=== PATIENT | female | born 2000 | race Caucasian/White ===

== ENCOUNTER 2021-02-23 09:36 | Emergency (ER) | payer OTHER ==
[~2021-02-23] VITALS: Ht 165.1 cm; Wt 69.7 kg
[2021-02-23 11:51] LABS: BASO % 0.3 % (0.0-1.0); EOS # 0.1 10^3/uL (0.0-0.5); EOS % 1.1 % (0.0-3.0); HEMATOCRIT 43.8 % (36.0-47.0); HEMOGLOBIN 14.3 g/dl (12.0-15.5); LYMPH # 2.4 10^3/uL (1.5-5.0); LYMPH % 27.1 % (24.0-44.0); MEAN CORPUSCULAR HEMOGLOBIN 28.9 pg (27.0-33.0); MEAN CORPUSCULAR HGB CONC 32.6 g/dl (32.0-36.5); MEAN CORPUSCULAR VOLUME 88.7 fl (80.0-96.0); MONO # 0.4 10^3/uL (0.0-0.8); MONO % 4.3 % (2.0-8.0); NEUTROPHILS % 66.9 % (36.0-66.0); PLATELET COUNT, AUTOMATED 229 10^3/uL (150-450); RED BLOOD COUNT 4.94 10^6/uL (4.00-5.40)
[2021-02-23 12:37] LABS: BLOOD UREA NITROGEN 14 MG/DL (7-18); CALCIUM LEVEL 9.7 MG/DL (8.5-10.1); CARBON DIOXIDE LEVEL 26 MEQ/L (21-32); CHLORIDE LEVEL 107 MEQ/L (98-107); GLUCOSE, FASTING 83 MG/DL (70-100); HCG, SERUM QUANTITATIVE 4104 MIU/ML; POTASSIUM SERUM 4.2 MEQ/L (3.5-5.1); SODIUM LEVEL 138 MEQ/L (136-145)
[2021-02-23] MEDS ORDERED: ONDANSETRON 4 MG TAB PO ONE (13:25)
[2021-02-23] MEDS ORDERED: ACETAMINOPHEN 325 MG TAB PO ONE (13:25)
--- NOTE | 2021-02-23 13:54 | REP ---
INDICATION: bleeding. COMPARISON: None. TECHNIQUE: Transvesical imaging. FINDINGS: The uterus measures 10.7 x 5 x 6.1 cm. The endometrial echo complex is heterogenous and thickened measuring 1.8 cm. There is no evidence of an intrauterine . The right ovary measures 2.5 x 2.7 x 1.6 cm and the left ovary measures 1.9 x 1.7 x 1.9 cm. Both ovaries are within normal limits. There is no evidence of free fluid in the cul-de-sac. IMPRESSION: There is no evidence of an intrauterine or extra uterine at this time. Findings as described above. Follow-up is recommended. <Electronically signed by Don Abrams > 02/23/21 [id number]
[2021-02-23 14:21] VITALS: BP 115/61
== END 2021-02-23 16:03 | disposition home or self-care (01) ==
LOC: M ED 09:36
DX: O20.0 Threatened abortion (principal); Z3A.08 8 weeks gestation of pregnancy

== ENCOUNTER → 2021-08-11 | Outpatient (REF) | payer OTHER | LOC: M WUC 19:32 | PROVIDERS: ATTEND Physician Assistant | DX: R30.0 Dysuria (principal) ==